=== PATIENT | female | born 1995 | race Caucasian/White ===

== ENCOUNTER 2016-07-06 11:38 | Emergency (ER) | payer OTHER ==
[2016-07-06 11:43] VITALS: BP 139/93; PULSE 100; RESP 18; O2SAT 100
--- NOTE | 2016-07-06 14:52 | ED.REPORT ---
HPI-Preg Under 20 Weeks Date of Service Jul 06, 2016 ED Provider: Orin Mcbride History of Present Illness: bleeding earlier this am. [address] Vargas at [facility] is OB. first . no nauses or vomiting, no cramping. saw OB last week. next appointment is 07/16/2016 US scheduled. o positive Nursing Notes Stated Complaint: VAGINAL BLEEDING POSSIBLE MISCARRAGE Chief Complaint: & Delivery Nursing Notes Reviewed: Yes Allergies: Coded Allergies: Sulfa (Sulfonamide Antibiotics) (Verified Allergy, Severe, 07/06/16) General Time Seen by Provider: 14:52 Chief Complaint Vaginal bleeding Hx Obtained From: Patient Onset Occurred: 13 - 16 hours ago Symptom Duration: Since onset Severity: Current: No pain currently Past Medical History Past Medical History Denies: Asthma Past Surgical History denies Smoking History Never Smoker Social History Alcohol Use: Denies alcohol use Drug Use: Denies drug use Occupation lives with boyfriend, work in [employer] across the street. 07/06/2016 Ambulatory Status Independent Review of Systems Basic Review of Systems ENT: Hearing NL, No pain, No nasal congestion, No pharyngeal pain Psychiatric: Normal thought content Physical Exam Initial Vital Signs Vital Signs (First) Date Time Temp Pulse Resp B/P Pulse Ox O2 Delivery O2 Flow Rate FiO2 07/06/16 11:43 37.2 100 18 139/93 100 Room Air Initial VS: Reviewed, Vital signs normal Head / Eyes: Atraumatic, Normocephalic, PERRL ENT: Mucous membranes moist, Conjunctiva normal, No scleral icterus Neck: Supple, Non-tender, Full range of motion Respiratory: Breath sounds normal, Clear to auscultation, No respiratory distress Cardiovascular: Regular rate & rhythm, Heart sounds normal, Intact distal pulses Back: No CVA tenderness Lymphatic: No lymphadenopathy Extremities: Vascular intact, Neuro intact, No swelling, No tenderness Skin: Warm, Dry, No cyanosis Neurologic: Alert, Oriented, Nonfocal Psychiatric: Mood/affect normal, Behavior normal, Normal thought content General/Constitutional: Awake, Alert, No acute distress, Well appearing, Well developed, Well hydrated Abdomen: Atraumatic, Soft, Non-tender, McBurney's non-tender, No guarding, No rebound, BS normoactive Female Genitourinary: Patient refused exam Interpretation & Diagnostics Lab Results Interpretation Result Diagram: 07/06/16 1410 Test 07/06/16 14:10 White Blood Count 7.2th/mm3 (3.8-10.1) Red Blood Count 4.38mil/mm3 (3.90-5.20) Hemoglobin 13.9g/dL (12.0-15.6) Hematocrit 40.6% (35.0-46.0) Mean Corpuscular Volume 92.7fL (81-100) Mean Corpuscular Hemoglobin 31.7pg (27.0-35.0) Mean Corpuscular Hemoglobin Concent 34.2% (32.0-37.0) Red Cell Distribution Width 12.9% (12.3-15.4) Platelet Count 185bil/L (150-400) Neutrophils (%) (Auto) 67.7% (40-74) Lymphocytes (%) (Auto) 21.0% (14-46) Monocytes (%) (Auto) 8.6% (4-12) Eosinophils (%) (Auto) 2.1% (0-5) Basophils (%) (Auto) 0.3% (0-3) HCG Beta Subunit 3674mIU/mL Hold Spann Top Tube Received (Received) Lab Results Interpretation: HCG is 3764 US Focused OB PROCEDURE: US OB<14 WKS INDICATIONS: started bleeding today TECHNIQUE: Real-time scanning was performed of the fetus and maternal pelvic organs, with image documentation. Endovaginal scanning was also performed to better visualize the fetus and maternal ovaries. COMPARISON: None. FINDINGS: Embryo: OB-RN WOUND CARE Ultrasound Procedure Report Early Gestation [facility] [place] Rump Length: 1.7 cm Gestational Age (CRL): 8 weeks 1 day. Summary Fetus Summary Heart Rate: No heart tones. Comments: A normal yolk sac is noted. No perigestational bleeds. Measurement variability in dating: +/- 4 weeks by LMP, +/- 7 days by mean sac diameter (use before 6 weeks gestation if crown-rump length not able to be measured), +/- 5 days by crown-rump length (6-12 weeks gestation). Maternal organs: Ovaries not visualized.. Limited images through the kidneys demonstrate no hydronephrosis. IMPRESSION: demise at roughly 8 weeks 1 day. Orin Mcbride given results by the delimber operator at 1545 hrs. 07/06/2016. Dictated by: Joseph Lopez RR Interpreted: Rachael Chisholm MD on 07/06/2016 at 16:17 Transcribed by: MONSE on 07/06/2016 at 16:20 Re-Eval/Medical Decision Med Decision/Clinical Course 20 year old female presents for evualation of vaginal bleeding that started this am.Patient has been seen by OB and has labs drawn. Patient is pain free at present. No sign of ectopic pregency or molar Discharge & Departure Primary Impression: demise, less than 22 weeks Additional Impression: Miscarriage Disposition: Home Patient Instructions: Intrauterine Demise (ED), Spontaneous Miscarriage ( ED) Additional Instructions: I am so sorry this has happened. The ultrasound shows what appears to be demise. There is no cardiac activity noted and the size of the fetus is at 8 week. Your HCG is at 3674, which is much lower than what is should be. Can use tylenol if you are having any discomfort. Please follow with your OB later this week or next week. REturn if bleeding thru more than 3 pads an hour for 2 hours , dizzy , nausea or vomiting. You are O positive so no rhogam is indicated. Again my sincere apologies that this is happening. Referrals: OTHER,PHYSICIAN (PCP) (Family) EDSupervising Provider for APC: Atul Sal MD, Sue ARNP Jul 06, 2016 14:52
[2016-07-06 15:31] LABS: BASOPHILS % (AUTO) 0.3 % (0-3); EOSINOPHILS % (AUTO) 2.1 % (0-5); MONOCYTES % (AUTO) 8.6 % (4-12); Mean Corpuscular Hemoglobin 31.7 pg (27.0-35.0); Mean Corpuscular Volume 92.7 fL (81-100); NEUTROPHILS % (AUTO) 67.7 % (40-74); Platelet Count 185 bil/L (150-400)
[2016-07-06 16:11] VITALS: BP 124/84; PULSE 78; RESP 16; O2SAT 100
--- NOTE | 2016-07-06 16:20 | DRSVH ---
PROCEDURE: US OB<14 WKS INDICATIONS: started bleeding today TECHNIQUE: Real-time scanning was performed of the fetus and maternal pelvic organs, with image documentation. Endovaginal scanning was also performed to better visualize the fetus and maternal ovaries. COMPARISON: None. 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 Summary Fetus Summary Heart Rate: No heart tones. Comments: A normal yolk sac is noted. No perigestational bleeds. Measurement variability in dating: +/- 4 weeks by LMP, +/- 7 days by mean sac diameter (use before 6 weeks gestation if crown-rump length not able to be measured), +/- 5 days by crown-rump length (6-12 weeks gestation). Maternal organs: Ovaries not visualized. Limited images through the kidneys demonstrate no hydronep hrosis. IMPRESSION: demise at 8 weeks 1 day. Orin Mcbride given results by the self pay representative at 1545 hrs. 07/06/2016. Dictated by: Joseph Lopez [facility] Interpreted: Rachael Chisholm MD on 07/06/2016 at 16:17 Transcribed by: MONSE on 07/06/2016 at 16:20 Approved by: Rachael Chisholm M.D. on 07/06/2016 at 22:29
== END 2016-07-06 16:12 | disposition home or self-care (01) ==
LOC: SED 11:38
DX: O03.9 Complete or unspecified spontaneous abortion without complication (principal); Z3A.12 12 weeks gestation of pregnancy; Z88.2 Allergy status to sulfonamides